=== PATIENT | male | born 1975 | race Two or more races ===

== ENCOUNTER → 2018-05-11 | Outpatient (CLI) | payer BC ==
[~2018-05-11] MED LIST: ASCO100T4 PO; IOHEXOL 180 MG/ML 10 ML VIAL. ONE; OMEG-165 PO; OXYC1TAB15 PO; Vitamin B6; ZOLP10TA4 PO; methylPREDNISolone ACETATE 40 MG/ML VIAL. ONE; methylPREDNISolone ACETATE 80 MG/ML VIAL. ONE
--- NOTE | 2018-05-11 22:24 | PAIN ---
DATE OF SERVICE: 05/11/2018 Initial Consultation for Pain Clinic CHIEF COMPLAINT: Low back and right lower extremity pain. HISTORY OF PRESENT ILLNESS: This is a 43-year-old male who presents with history of pain for about 4 years status post lumbar laminectomy on the right at L4-L5 in 2010. The patient reports he did well initially, but after about 2 years or so, the pain began to return. Over the past 4 years, it has been significantly increasing. Especially, over the last 1 year, the patient reports increasing low back, right lower extremity, mostly in the lateral aspect of the thigh and leg, sometimes on the left, but mostly on the right side, posterior gluteus, posterior thigh and calf at times, as well as the medial thigh and calf on the right. The patient reports across the low back bilaterally when he is on his feet for more than just a few hours. The patient does have a job where he is on his feet most of his working day. The patient reports the pain is constant, sharp, stabbing, throbbing, shooting, radiating into the right lower extremity, worse with activity, standing, walking, changing positions, also burning and aching with prolonged sitting. The patient reports it awakes him from sleep occasionally, but not every night, does not affect bowel or bladder control, but does affect his ability to walk, not using any assistive devices, however. The patient has had previous chiropractic treatment, as well as exercise, which he is currently doing and had some epidural injections in 2012, which he reports did help. The patient is taking oxycodone, which has not been helping. The patient reports disability rate from 0 to 10, 10 being the worst, average is 10 with family and home responsibilities, recreation, social activity, occupation and self-care, 7 with life support activities, and 0 with sexual behavior. The patient did have MRI scan was from 11/07/2015 showing stable postoperative changes from right, previous laminectomy at L4-L5 with small stable recurrent central disk protrusion impressing slightly upon the ventral thecal sac and stable small broad-based disk bulge at L3-L4 and small central right paracentral disk osteophyte complex at L5-S1 resulting in mild right lateral recess narrowing, again it is from 11/07/2015. PAST MEDICAL HISTORY: Significant for hypertension; cigarette smoking, one-half pack a day for 20 years, but quit 03/12/2018. Otherwise, the patient has been in fairly good health. PREVIOUS SURGERIES: Include lumbar laminectomy in 2010 and rotator cuff surgery on the left in 2000. CURRENT MEDICATIONS: Include zolpidem, omega fish oils, Percocet, and vitamin C. ALLERGIES: The patient is allergic to HYDROCODONE. FAMILY HISTORY: Significant for no major medical problems or conditions he is aware of. SOCIAL HISTORY: The patient just recently quit smoking. Does not drink alcohol. Does not use any illegal, illicit or recreational drugs. He is and lives with his spouse, lives locally in [place], [place]. 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 REVIEW OF SYSTEMS: The patient's review of systems is positive for those items mentioned in history of present illness. All systems reviewed and otherwise negative. It is complete, full and well documented on the patient's chart. PHYSICAL EXAMINATION: VITAL SIGNS: The patient's blood pressure is 138/78, pulse 72, respirations 18, temperature is 98 degrees Fahrenheit, height is 5 feet 6 inches, weight is 228 pounds. GENERAL: The patient is awake, alert, oriented, appropriate, very pleasant demeanor. HEENT: Head is normocephalic, atraumatic. Extraocular movements intact and symmetrical. Oral cavity: Mucous membranes moist and pink. Dentition is intact. NECK: Shows anterior throat supple without palpable lymphadenopathy noted. Swallow reflex is symmetrical. CHEST: Shows normal on inspection. Breath sounds are clear to auscultation bilaterally. HEART: Shows S1, S2 clear. No murmurs auscultated. ABDOMEN: Soft, obese, nontender, nondistended. No palpable organomegaly is noted. No rebound or guarding demonstrated. BACK: Shows spine grossly in the midline, normal-appearing cervical lordotic curvature, thoracic kyphotic curvature, and mild flattening of lumbar lordotic curvature. Neck shows full rotational motion of cervical spine, both laterally, as well as extension and flexion without difficulty. Lumbar spine shows symmetrical paraspinous musculature without atrophy, hypertrophy with palpation, shows some moderate tenderness in the middle and lower distribution of paraspinous muscles, but only diffusely without radiation and symmetrical, without trigger points. No tenderness over the spinous processes, sacrum or sacroiliac regions. The patient has good rotational motion of lumbar spine, both laterally greater than 10 degrees right and left, as well as extension greater than 10 degrees, forward flexion 45 degrees without significant pain reported. EXTREMITIES: Lower extremities show deep tendon reflexes at 2+ in the patellar, 1+ tendo calcaneus tendons. Motor exam is strong with 5/5 dorsiflexion and extension bilaterally. The patient has a mild straight leg raise on the right about 45 degrees, but is decreased with knee flexion. Left side is negative. Gaenslen's and Davin's maneuvers are negative bilaterally as well. Peripheral pulses are 1+ posterior tibial. No peripheral edema is noted. Lower extremities are warm and dry to touch, equal in color and appearance. The patient is able to stand, stand on his toes without difficulty or loss of balance, has a normal-appearing gait for short distance walk in the office today, not using any assistive devices. SKIN: Shows warm and dry, good turgor. No edema. No sores, rashes or bruising. IMPRESSION: 1. This is a 43-year-old male with long history about 4 years, worse over the past 1 year, low back pain in the radicular fashion in the L5-S1 dermatomal distribution of the right side, status post exercise and physical therapies, previous interventional techniques. 2. MRI scan of lumbar spine as noted again from 2016. 3. Hypertension. PLAN: Options were discussed with the patient including conservative medical management, physical therapy, interventional techniques and would like to pursue interventional techniques. We discussed lumbar epidural steroid injection using description, as well as anatomical models to describe the procedure. Risks were then discussed including, but not limited to bleeding, infection, possibility of epidural hematoma, subsequent neurologic compromise, dural puncture, headaches, spinal cord and/or nerve damage, side effects of steroid medication and poor results regarding pain control. The patient understands and wished to proceed. The patient to return to clinic in approximately 2 weeks for followup. He was counseled to return appointment, activity level and side effects to be aware of. DIAGNOSES: Lumbar radiculopathy with lumbar degenerative disk disease, post-lumbar laminectomy syndrome. PROCEDURE: Lumbar epidural steroid injection, translaminar approach at L5-S1 level using C-arm fluoroscopic guidance under sterile prep and drape using local anesthetic. MEDICATIONS: A total of 120 mg of Depo-Medrol plus 10 mL of preservative-free normal saline and 2 mL of Isovue for contrast. CONDITION AT DISCHARGE: Stable. The patient tolerated the procedure well, had no complications. ROHIT KENDRICK MD DR: OLAMIDE/anita JOB#: [id number] / [id number]
== END | disposition home or self-care (01) ==
LOC: PNCL 11:45
PROVIDERS: ATTEND Anesthesiology
DX: M51.16 Intervertebral disc disorders with radiculopathy, lumbar region (principal); M96.1 Postlaminectomy syndrome, not elsewhere classified; I10 Essential (primary) hypertension; Z88.5 Allergy status to narcotic agent; Z87.891 Personal history of nicotine dependence; Z98.890 Other specified postprocedural states; Z79.899 Other long term (current) drug therapy; Z72.89 Other problems related to lifestyle
CPT/HCPCS: 62323; J1030; J1040; Q9965